=== PATIENT | male | born 1965 | race Caucasian/White ===

== ENCOUNTER 2021-07-07 14:14 | Emergency (ER) | payer MEDICARE, OTHER ==
[~2021-07-07] VITALS: Ht 172.7 cm; Wt 86.2 kg
[~2021-07-07 14:14] MED LIST: ALL DAY ALLERGY10 M3 PO; DEXAMETHASONE6 MG PO; ECOTRIN81 MG PO; GLUCOPHAGE500 MG PO; HUMALOG100 UNIT/3 SC; LANTUS SOL100 UNIT/1 SQ; LIPITOR TAB 1010 MG PO; LISINOPRIL10 MG PO; LOPRESSOR 25 MG25 MG PO; MELOXICAM7.5 MG PO; MONTELUKAST SOD10 MG PO; NEURONTIN 300300 MG PO; NYSTATIN100000 UNI MT; PRAVACHOL40 MG PO; PROTONIX40 MG PO; REGLAN 10 MG TA10 MG PO; TOUJEO MAX300 UNIT/1 SQ
[2021-07-07] MEDS ORDERED: ZOFRAN ODT 4 MG4 MG PO (16:09)
[2021-07-07] MEDS ORDERED: TESSALON PERLE100 MG PO (16:09)
[2021-07-08] MEDS ORDERED: NOVOLOG FL100 UNIT/1 SC (12:50)
[2021-07-08] MEDS ORDERED: HYDROCHLOROTH12.5 M1 PO (14:48)
[2021-07-08] MEDS ORDERED: AMITRIPTYLINE H25 MG PO (14:48)
[2021-07-08] MEDS ORDERED: MOBIC7.5 MG PO (14:49)
[2021-07-08] MEDS ORDERED: DRISDOL1250 MCG PO (14:50)
[2021-07-08] MEDS ORDERED: NYAMYC60 GM TOP (14:50)
[2021-07-08] MEDS ORDERED: IMITREX100 MG PO (14:51)
[2021-07-08] MEDS ORDERED: ZOFRAN ODT 4 MG4 MG PO (15:07)
[2021-07-08] MEDS ORDERED: VITAMIN C 500500 MG PO (15:10)
[2021-07-08] MEDS ORDERED: VITAMIN B-122500 MCG SL (15:11)
[2021-07-08] MEDS ORDERED: MAGNESIUM400 M2 PO (15:11)
[2021-07-08] MEDS ORDERED: TOUJEO MAX300 UNIT/1 SC (23:11)
== END 2021-07-07 18:00 | disposition home or self-care (01) ==
LOC: ER1 14:14
DX: Z53.8 Procedure and treatment not carried out for other reasons (principal)
CPT/HCPCS: 99283; Q9967

== ENCOUNTER 2021-07-07 20:47 | Inpatient (IN) | payer MEDICARE, OTHER ==
[~2021-07-07] VITALS: Ht 175.3 cm; Wt 97.3 kg
[~2021-07-07 20:47] MED LIST changes: +TESSALON PERLE100 MG PO; +ZOFRAN ODT 4 MG4 MG PO
[2021-07-07 22:28] LABS: HEMOGLOBIN 14.9 gm/dl (14.0-17.5); RED BLOOD COUNT 4.65 M/UL (4.20-5.50); WHITE BLOOD COUNT 10.7 K/UL (4.5-11.0)
[2021-07-07 22:57] LABS: BUN/CREATININE RATIO 19 (0-10)
[2021-07-08 02:39] LABS: RED BLOOD COUNT 4.64 M/UL (4.20-5.50); WHITE BLOOD COUNT 11.7 K/UL (4.5-11.0)
[2021-07-08 02:58] LABS: BUN/CREATININE RATIO 19 (0-10)
--- NOTE | 2021-07-08 07:45 | NUR ---
MOOSE IN ECHO DEPARTMENT CONTACTED AND MADE AWARE OF STAT ECHO ORDER. [phone]
[2021-07-08] MEDS ORDERED: NOVOLOG FL100 UNIT/1 SC (12:50)
[2021-07-08] MEDS ORDERED: HYDROCHLOROTH12.5 M1 PO (14:48)
[2021-07-08] MEDS ORDERED: AMITRIPTYLINE H25 MG PO (14:48)
[2021-07-08] MEDS ORDERED: MOBIC7.5 MG PO (14:49)
[2021-07-08] MEDS ORDERED: NYAMYC60 GM TOP (14:50)
[2021-07-08] MEDS ORDERED: DRISDOL1250 MCG PO (14:50)
[2021-07-08] MEDS ORDERED: IMITREX100 MG PO (14:51)
[2021-07-08] MEDS ORDERED: ZOFRAN ODT 4 MG4 MG PO (15:07)
[2021-07-08] MEDS ORDERED: VITAMIN C 500500 MG PO (15:10)
[2021-07-08] MEDS ORDERED: VITAMIN B-122500 MCG SL (15:11)
[2021-07-08] MEDS ORDERED: MAGNESIUM400 M2 PO (15:11)
--- NOTE | 2021-07-08 17:42 | NUR ---
VERSED INFUSION WAS INITIATED BY NIGHTSHIFT NURSE. ON ARRIVAL TO [facility]'S ROOM AT 0700, VERSED INFUSION WAS AT 17 MG/HR.
[2021-07-08] MEDS ORDERED: TOUJEO MAX300 UNIT/1 SC (23:11)
[2021-07-09 04:59] LABS: HEMOGLOBIN 13.4 gm/dl (14.0-17.5); RED BLOOD COUNT 4.25 M/UL (4.20-5.50); WHITE BLOOD COUNT 13.5 K/UL (4.5-11.0)
[2021-07-09 05:32] LABS: BUN/CREATININE RATIO 25 (0-10)
--- NOTE | 2021-07-09 10:35 | NUR ---
SPOKE WITH PT'S SISTER AND MOTHER (RAMON MARIA AN FREDDY CLARISSA) ABOUT NEED FOR CENTRAL LINE PLACEMENT. EXPLAINED PURPOSE AND IMPORTANCE. EXPLAINED NEED AND PURPOSE OF PRONING. VERBALIZED UNDERSTANDING.
--- NOTE | 2021-07-09 13:39 | NUR ---
PT PLACED IN PRONE POSITION PER VERBAL ORDER OF PULMONOLOGY. PT TURNED WITH ASST OF NSG X 6 AND RT X 1. BODY ALIGNED WITH PILLOWS. O2 SAT 93% AT TIME OF PRONING.
[2021-07-09 21:18] LABS: HEMOGLOBIN 12.8 gm/dl (14.0-17.5); RED BLOOD COUNT 4.01 M/UL (4.20-5.50)
[2021-07-09 21:40] LABS: BUN/CREATININE RATIO 32 (0-10)
[2021-07-10 04:27] LABS: BUN/CREATININE RATIO 34 (0-10)
[2021-07-10 13:15] LABS: BUN/CREATININE RATIO 39 (0-10)
--- NOTE | 2021-07-10 18:21 | NUR ---
PT TURNED AND REPOSITIONED Q2-3HRS THIS SHIFT WITH FREQUENT ORAL CARE PERFORMED. ETT TUBE GROSS CHANGED PER NSG AND RT.
[2021-07-11 05:07] LABS: RED BLOOD COUNT 4.15 M/UL (4.20-5.50); WHITE BLOOD COUNT 9.7 K/UL (4.5-11.0)
[2021-07-11 05:57] LABS: BUN/CREATININE RATIO 46 (0-10)
[2021-07-12 06:04] LABS: HEMOGLOBIN 12.8 gm/dl (14.0-17.5); RED BLOOD COUNT 4.1 M/UL (4.20-5.50); WHITE BLOOD COUNT 8.5 K/UL (4.5-11.0)
[2021-07-12 06:29] LABS: BUN/CREATININE RATIO 56 (0-10)
[2021-07-13 04:11] LABS: HEMOGLOBIN 12.6 gm/dl (14.0-17.5); WHITE BLOOD COUNT 9.5 K/UL (4.5-11.0)
[2021-07-13 04:37] LABS: BUN/CREATININE RATIO 57 (0-10)
[2021-07-14 05:00] LABS: HEMOGLOBIN 11.9 gm/dl (14.0-17.5); RED BLOOD COUNT 3.82 M/UL (4.20-5.50); WHITE BLOOD COUNT 10.3 K/UL (4.5-11.0)
[2021-07-14 05:35] LABS: BUN/CREATININE RATIO 57 (0-10)
[2021-07-15 05:28] LABS: HEMOGLOBIN 12.6 gm/dl (14.0-17.5); RED BLOOD COUNT 4.07 M/UL (4.20-5.50); WHITE BLOOD COUNT 9.3 K/UL (4.5-11.0)
[2021-07-15 05:49] LABS: BUN/CREATININE RATIO 54 (0-10)
[2021-07-16 04:18] LABS: RED BLOOD COUNT 4.33 M/UL (4.20-5.50)
[2021-07-16 05:01] LABS: BUN/CREATININE RATIO 52 (0-10)
--- NOTE | 2021-07-17 00:57 | NUR ---
PT SAT 82% ON AIRVO @ 100%. MD CALLED PT PLACED ON BIPAP AO. PT BLOOG GLUCOE LEVEL 44 1 AMP OG D50 GIVEN AO. PT NTS TO HAVE A VOMITING EPISODE IN WHICH ZOFRAN IVP WAS GIVEN AO. PT IS CURRENTLY RECIEVING 100 FI02 WITH A SAT OF 95%. WILL CONTINTUE TO SPEAK WITH MD ABOUT ANY CHANGES IN PT RESPIRATORY STATUS.
[2021-07-17 05:38] LABS: HEMOGLOBIN 15.9 gm/dl (14.0-17.5); WHITE BLOOD COUNT 10.6 K/UL (4.5-11.0)
[2021-07-17 05:43] LABS: RED BLOOD COUNT 4.95 M/UL (4.20-5.50)
[2021-07-17 06:00] LABS: BUN/CREATININE RATIO 40 (0-10)
[2021-07-18 04:53] LABS: HEMOGLOBIN 13.7 gm/dl (14.0-17.5); RED BLOOD COUNT 4.33 M/UL (4.20-5.50); WHITE BLOOD COUNT 9.8 K/UL (4.5-11.0)
[2021-07-18 05:40] LABS: BUN/CREATININE RATIO 55 (0-10)
[2021-07-19 05:14] LABS: HEMOGLOBIN 13.5 gm/dl (14.0-17.5); RED BLOOD COUNT 4.22 M/UL (4.20-5.50); WHITE BLOOD COUNT 8.8 K/UL (4.5-11.0)
[2021-07-19 05:48] LABS: BUN/CREATININE RATIO 52 (0-10)
--- NOTE | 2021-07-19 18:31 | NUR ---
PT RECIVED TO PCU @ 1752 PT STABLE AT THIS TIME ON AIRVO 60L AND 65%. CHART AND MEDS BROUGHT WITH PT
[2021-07-20 04:43] LABS: HEMOGLOBIN 14.1 gm/dl (14.0-17.5); RED BLOOD COUNT 4.46 M/UL (4.20-5.50); WHITE BLOOD COUNT 7.9 K/UL (4.5-11.0)
[2021-07-20 04:57] LABS: BUN/CREATININE RATIO 40 (0-10)
[2021-07-21 06:32] LABS: BUN/CREATININE RATIO 45 (0-10)
[2021-07-22 04:19] LABS: BUN/CREATININE RATIO 45 (0-10)
[2021-07-23 03:20] LABS: BUN/CREATININE RATIO 45 (0-10)
[2021-07-24 03:45] LABS: HEMOGLOBIN 13.1 gm/dl (14.0-17.5); RED BLOOD COUNT 4.15 M/UL (4.20-5.50); WHITE BLOOD COUNT 5.8 K/UL (4.5-11.0)
[2021-07-24 04:06] LABS: BUN/CREATININE RATIO 38 (0-10)
[2021-07-25 03:41] LABS: BUN/CREATININE RATIO 31 (0-10)
[2021-07-27 04:11] LABS: RED BLOOD COUNT 4.38 M/UL (4.20-5.50); WHITE BLOOD COUNT 8.8 K/UL (4.5-11.0)
[2021-07-27 04:32] LABS: BUN/CREATININE RATIO 25 (0-10)
[2021-07-29 03:57] LABS: HEMOGLOBIN 14.7 gm/dl (14.0-17.5); RED BLOOD COUNT 4.58 M/UL (4.20-5.50); WHITE BLOOD COUNT 8.7 K/UL (4.5-11.0)
[2021-07-29 04:27] LABS: BUN/CREATININE RATIO 25 (0-10)
[2021-07-30 03:22] LABS: BUN/CREATININE RATIO 22 (0-10)
[2021-07-31 03:59] LABS: HEMOGLOBIN 13.1 gm/dl (14.0-17.5); RED BLOOD COUNT 4.24 M/UL (4.20-5.50); WHITE BLOOD COUNT 8.2 K/UL (4.5-11.0)
[2021-07-31 04:15] LABS: BUN/CREATININE RATIO 24 (0-10)
--- NOTE | 2021-08-01 12:22 | NUR ---
REPORT GIVEN TO SUZIE ON 4TH FLOOR. PATIENT TO BE TRANSFERRED
[2021-08-03 07:17] LABS: HEMOGLOBIN 14.2 gm/dl (14.0-17.5); RED BLOOD COUNT 4.73 M/UL (4.20-5.50); WHITE BLOOD COUNT 8.8 K/UL (4.5-11.0)
[2021-08-03 07:51] LABS: BUN/CREATININE RATIO 16 (0-10)
[2021-08-06 08:02] LABS: RED BLOOD COUNT 4.81 M/UL (4.20-5.50); WHITE BLOOD COUNT 11.3 K/UL (4.5-11.0)
[2021-08-06 08:19] LABS: BUN/CREATININE RATIO 19 (0-10)
[2021-08-08 09:06] LABS: HEMOGLOBIN 14.2 gm/dl (14.0-17.5); RED BLOOD COUNT 4.61 M/UL (4.20-5.50)
[2021-08-08 09:08] LABS: WHITE BLOOD COUNT 15.7 K/UL (4.5-11.0)
[2021-08-08 09:32] LABS: BUN/CREATININE RATIO 15 (0-10)
[2021-08-10 04:41] LABS: HEMOGLOBIN 13.7 gm/dl (14.0-17.5); RED BLOOD COUNT 4.48 M/UL (4.20-5.50); WHITE BLOOD COUNT 13.4 K/UL (4.5-11.0)
[2021-08-10 04:44] LABS: BUN/CREATININE RATIO 12 (0-10)
[2021-08-11 09:14] LABS: HEMOGLOBIN 14.3 gm/dl (14.0-17.5); RED BLOOD COUNT 4.56 M/UL (4.20-5.50); WHITE BLOOD COUNT 14.8 K/UL (4.5-11.0)
[2021-08-12 08:59] LABS: HEMOGLOBIN 12.7 gm/dl (14.0-17.5); WHITE BLOOD COUNT 11.5 K/UL (4.5-11.0)
[2021-08-13 02:45] LABS: HEMOGLOBIN 11.9 gm/dl (14.0-17.5); RED BLOOD COUNT 3.78 M/UL (4.20-5.50); WHITE BLOOD COUNT 12.6 K/UL (4.5-11.0)
[2021-08-13 03:52] LABS: BUN/CREATININE RATIO 12 (0-10)
[2021-08-14 04:22] LABS: HEMOGLOBIN 12.4 gm/dl (14.0-17.5); RED BLOOD COUNT 3.92 M/UL (4.20-5.50); WHITE BLOOD COUNT 12.6 K/UL (4.5-11.0)
[2021-08-14 04:50] LABS: BUN/CREATININE RATIO 8 (0-10)
[2021-08-15 05:21] LABS: HEMOGLOBIN 11.9 gm/dl (14.0-17.5); RED BLOOD COUNT 3.77 M/UL (4.20-5.50); WHITE BLOOD COUNT 14.4 K/UL (4.5-11.0)
[2021-08-15 05:32] LABS: BUN/CREATININE RATIO 10 (0-10)
[2021-08-16 05:57] LABS: HEMOGLOBIN 11.8 gm/dl (14.0-17.5); RED BLOOD COUNT 3.65 M/UL (4.20-5.50); WHITE BLOOD COUNT 14.7 K/UL (4.5-11.0)
[2021-08-16 06:19] LABS: BUN/CREATININE RATIO 11 (0-10)
[2021-08-17 07:29] LABS: HEMOGLOBIN 12.2 gm/dl (14.0-17.5); RED BLOOD COUNT 3.93 M/UL (4.20-5.50)
[2021-08-17 07:31] LABS: WHITE BLOOD COUNT 19.3 K/UL (4.5-11.0)
[2021-08-17 07:55] LABS: BUN/CREATININE RATIO 9 (0-10)
[2021-08-18 10:54] LABS: HEMOGLOBIN 13.3 gm/dl (14.0-17.5); RED BLOOD COUNT 4.06 M/UL (4.20-5.50)
[2021-08-18 10:55] LABS: WHITE BLOOD COUNT 26.4 K/UL (4.5-11.0)
[2021-08-18 11:13] LABS: BUN/CREATININE RATIO 11 (0-10)
--- NOTE | 2021-08-18 18:50 | NUR ---
DR. HINSON AT BEDSIDE TO PUT INCENTRAL LINE. TITRATING LEVOPHED DRIP FOR BLOOD PRESSURE (SEE FLOW SHEET ). CENTRAL LINE VERIFIED BY X-RAY. OK TO USE PER DR. HINSON. 1942 NS BOLUS STARTED ORDERED.
[2021-08-19 05:37] LABS: HEMOGLOBIN 12.3 gm/dl (14.0-17.5); RED BLOOD COUNT 3.96 M/UL (4.20-5.50)
--- NOTE | 2021-08-19 20:04 | NUR ---
BLOOD GLUCOSE RESULT 184 . NOTIFIED. ORDER RECEIVED TO CONTINUE INSULIN DRIP AND TITRATE TO BLOOD GLUCOSE IN 120 - 200 RANGE .
[2021-08-20 05:36] LABS: HEMOGLOBIN 10.7 gm/dl (14.0-17.5)
[2021-08-20 05:37] LABS: RED BLOOD COUNT 3.51 M/UL (4.20-5.50); WHITE BLOOD COUNT 25.3 K/UL (4.5-11.0)
[2021-08-21 05:53] LABS: RED BLOOD COUNT 3.13 M/UL (4.20-5.50); WHITE BLOOD COUNT 13.8 K/UL (4.5-11.0)
[2021-08-21 09:09] LABS: HEMOGLOBIN 9.4 gm/dl (14.0-17.5); RED BLOOD COUNT 2.97 M/UL (4.20-5.50); WHITE BLOOD COUNT 12.4 K/UL (4.5-11.0)
[2021-08-22 01:01] LABS: ADENOVIRUS F 40/41 Not Detected (Negative); ASTROVIRUS Not Detected (Negative); CAMPYLOBACTER Not Detected (Negative); CLOSTRIDIUM DIFFICILE TOX A/B Not Detected (Negative); CRYPTOSPORIDIUM Not Detected (Negative); E.COLI 0157 Not Detected (Negative); ENTAMOEBA HISTOLYTICA Not Detected (Negative); ENTEROAGGREGATIVE E.COLI (EAEC Not Detected (Negative); ENTEROPATHOGENIC E.COLI (EPEC) Not Detected (Negative); ENTEROTOXIGENIC E.COLI (ETEC) Not Detected (Negative); GIARDIA LAMBLIA Not Detected (Negative); NOROVIRUS GI/GII Not Detected (Negative); PLESIOMONAS SHIGELLOIDES Not Detected (Negative); ROTOVIRUS A Not Detected (Negative); SALMONELLA Not Detected (Negative); SAPOVIRUS Not Detected (Negative); SHIG/ENTEROINVAS.ECOLI (EIEC) Not Detected (Negative); SHIGA-LIK TOX.PRO.E.COLI (STEC Not Detected (Negative); VIBRIO Not Detected (Negative); VIBRIO CHOLERAE Not Detected (Negative); YERSINIA ENTEROCOLITICA Not Detected (Negative)
[2021-08-22 05:25] LABS: HEMOGLOBIN 9.1 gm/dl (14.0-17.5); RED BLOOD COUNT 2.9 M/UL (4.20-5.50); WHITE BLOOD COUNT 10.8 K/UL (4.5-11.0)
--- NOTE | 2021-08-22 17:16 | NUR ---
08/22/21 1715 TUBE FEEDING OFF ALL DAY [address] CARRERO AWARE
[2021-08-23 05:14] LABS: HEMOGLOBIN 9.1 gm/dl (14.0-17.5); RED BLOOD COUNT 2.96 M/UL (4.20-5.50)
[2021-08-23 05:15] LABS: WHITE BLOOD COUNT 15.9 K/UL (4.5-11.0)
--- NOTE | 2021-08-23 12:10 | NUR ---
08/23/21 1210 RECEIVED CALL FROM RADIOLOGY ABOUT ETT NEEDING TO BE ADVANCED, DR GARF ALREADY HAD RESP THERAPIST TO ADVANCE
[2021-08-24 04:59] LABS: HEMOGLOBIN 8.5 gm/dl (14.0-17.5); RED BLOOD COUNT 2.69 M/UL (4.20-5.50)
[2021-08-24 05:22] LABS: WHITE BLOOD COUNT 20.7 K/UL (4.5-11.0)
[2021-08-24 10:13] LABS: HBSAG SCREEN Negative (Negative); HEP A AB, IGM Negative (Negative); HEP B CORE AB, IGM Negative (Negative); HEP C VIRUS AB <0.1 (0.0-0.9)
[2021-08-24 16:13] LABS: HEPARIN INDUCED PLATELET AB 0.156 OD (0.000-0.400)
--- NOTE | 2021-08-24 23:16 | NUR ---
02 SATS 88% ON FI02 100% . REPOSITIIONED IN BED , HOB RAISED TO > 30 DEGREES ,02 SATS INCREASED TO 93-94% ,WILL CONTINUE TO MONITOR,
[2021-08-25 05:41] LABS: HEMOGLOBIN 7.8 gm/dl (14.0-17.5); WHITE BLOOD COUNT 25.7 K/UL (4.5-11.0)
[2021-08-26 05:48] LABS: HEMOGLOBIN 7.3 gm/dl (14.0-17.5); RED BLOOD COUNT 2.35 M/UL (4.20-5.50); WHITE BLOOD COUNT 22.2 K/UL (4.5-11.0)
[2021-08-27 06:06] LABS: HEMOGLOBIN 7.4 gm/dl (14.0-17.5); RED BLOOD COUNT 2.3 M/UL (4.20-5.50)
[2021-08-28 06:25] LABS: HEMOGLOBIN 7.4 gm/dl (14.0-17.5); RED BLOOD COUNT 2.34 M/UL (4.20-5.50); WHITE BLOOD COUNT 23.9 K/UL (4.5-11.0)
[2021-08-29 05:26] LABS: HEMOGLOBIN 8.3 gm/dl (14.0-17.5)
[2021-08-29 05:55] LABS: RED BLOOD COUNT 2.67 M/UL (4.20-5.50); WHITE BLOOD COUNT 42.9 K/UL (4.5-11.0)
[2021-08-30 06:04] LABS: HEMOGLOBIN 9.4 gm/dl (14.0-17.5); RED BLOOD COUNT 2.88 M/UL (4.20-5.50)
[2021-08-30 08:28] LABS: WHITE BLOOD COUNT 46.5 K/UL (4.5-11.0)
[2021-08-30 22:21] LABS: ACINETOBACTER BAUMANNII Not Detected (Negative); CANDIDA ALBICANS Not Detected (Negative); CANDIDA KRUSEI Not Detected (Negative); CANDIDA TROPICALIS Not Detected (Negative); ENTEROCOCCUS Not Detected (Negative); ESCHERICHIA COLI Not Detected (Negative); HAEMOPHILUS INFLUENZAE Not Detected (Negative); KLEBSIELLA OXYTOCA Not Detected (Negative); KLEBSIELLA PNEUMONIAE Not Detected (Negative); KPC-CARBAPENEM-RESISTANCE GENE Not Detected (Negative); PROTEUS Not Detected (Negative); PSEUDOMONAS AERUGINOSA Not Detected (Negative); SERRATIA MARCESANS Not Detected (Negative); STAPHYLOCOCCUS AUREUS Not Detected (Negative); STREP AGALACTIAE (GROUP B) Not Detected (Negative); STREP PYOGENES (GROUP A) Not Detected (Negative); STREPTOCOCCUS Not Detected (Negative); vanA/B (VANCOMYCIN RESIST GENE Not Detected (Negative)
[2021-08-30 23:53] LABS: STAPHYLOCOCCUS DETECTED (Negative); mecA (METHICILLIN RESIST GENE DETECTED (Negative)
[2021-08-31 05:04] LABS: HEMOGLOBIN 7.6 gm/dl (14.0-17.5)
[2021-08-31 05:19] LABS: RED BLOOD COUNT 2.34 M/UL (4.20-5.50); WHITE BLOOD COUNT 33.3 K/UL (4.5-11.0)
[2021-09-01 06:44] LABS: ADENOVIRUS F 40/41 Not Detected (Negative); ASTROVIRUS Not Detected (Negative); CAMPYLOBACTER Not Detected (Negative); CLOSTRIDIUM DIFFICILE TOX A/B Not Detected (Negative); CRYPTOSPORIDIUM Not Detected (Negative); E.COLI 0157 Not Detected (Negative); ENTAMOEBA HISTOLYTICA Not Detected (Negative); ENTEROAGGREGATIVE E.COLI (EAEC Not Detected (Negative); ENTEROPATHOGENIC E.COLI (EPEC) Not Detected (Negative); ENTEROTOXIGENIC E.COLI (ETEC) Not Detected (Negative); GIARDIA LAMBLIA Not Detected (Negative); NOROVIRUS GI/GII Not Detected (Negative); PLESIOMONAS SHIGELLOIDES Not Detected (Negative); ROTOVIRUS A Not Detected (Negative); SALMONELLA Not Detected (Negative); SAPOVIRUS Not Detected (Negative); SHIG/ENTEROINVAS.ECOLI (EIEC) Not Detected (Negative); SHIGA-LIK TOX.PRO.E.COLI (STEC Not Detected (Negative); VIBRIO Not Detected (Negative); VIBRIO CHOLERAE Not Detected (Negative); YERSINIA ENTEROCOLITICA Not Detected (Negative)
[2021-09-01 06:50] LABS: HEMOGLOBIN 7.1 gm/dl (14.0-17.5); RED BLOOD COUNT 2.2 M/UL (4.20-5.50); WHITE BLOOD COUNT 28.5 K/UL (4.5-11.0)
[2021-09-02 06:36] LABS: HEMOGLOBIN 7.7 gm/dl (14.0-17.5); RED BLOOD COUNT 2.42 M/UL (4.20-5.50); WHITE BLOOD COUNT 26.9 K/UL (4.5-11.0)
[2021-09-03 04:25] LABS: HEMOGLOBIN 7.9 gm/dl (14.0-17.5); RED BLOOD COUNT 2.64 M/UL (4.20-5.50)
[2021-09-04 05:24] LABS: HEMOGLOBIN 7.7 gm/dl (14.0-17.5); RED BLOOD COUNT 2.51 M/UL (4.20-5.50); WHITE BLOOD COUNT 24.8 K/UL (4.5-11.0)
--- NOTE | 2021-09-04 18:13 | NUR ---
09/04/21 0830 SPOKE TO [employer] ABOUT PATIENT. GCS 3, NO CORNEAL/GAG/COUGH REFLEXES NOTED. [employer] STATED THAT PATIENT IS RULED OUT FOR ORGAN DONATION.
[2021-09-05 05:47] LABS: HEMOGLOBIN 7.2 gm/dl (14.0-17.5); RED BLOOD COUNT 2.32 M/UL (4.20-5.50)
[2021-09-06 04:50] LABS: RED BLOOD COUNT 2.15 M/UL (4.20-5.50); WHITE BLOOD COUNT 17.7 K/UL (4.5-11.0)
[2021-09-06 05:00] LABS: HEMOGLOBIN 6.6 gm/dl (14.0-17.5)
[2021-09-07 05:26] LABS: HEMOGLOBIN 7.4 gm/dl (14.0-17.5); WHITE BLOOD COUNT 14.3 K/UL (4.5-11.0)
[2021-09-07 05:44] LABS: RED BLOOD COUNT 2.48 M/UL (4.20-5.50)
[2021-09-09 05:30] LABS: RED BLOOD COUNT 1.65 M/UL (4.20-5.50)
[2021-09-10 05:28] LABS: HEMOGLOBIN 7.6 gm/dl (14.0-17.5); RED BLOOD COUNT 2.51 M/UL (4.20-5.50); WHITE BLOOD COUNT 7.5 K/UL (4.5-11.0)
--- NOTE | 2021-09-10 10:29 | NUR ---
LATE NOTE: APPORXIMATELY 0730 PT FOUND TO BE HYPOTHERMIC DURING ASSESSMENT. WARM BLANKETS APPLIED AND WARMING BLAKET PLACED ON PATIENT. CONTINUING TO MONITOR TEMPERATURE.
--- NOTE | 2021-09-10 10:30 | NUR ---
LATE NOTE: 0802 PATIENTS BLOOD GLUCOSE 39, ON RE-CHECK GLUCOSE WAS 34. MD NOTIFIED D50 PUSH GIVEN IV PER PROTOCOL. D5W STARTED AT 5OML/HR PER MD ORDER. LANTUS HELD PER MD.
--- NOTE | 2021-09-10 10:35 | NUR ---
1000: OR TEAM AT BEDSIDE FOR TRACH AND PEG. VSS AT THIS TIME.
[2021-09-11 07:53] LABS: HEMOGLOBIN 7.7 gm/dl (14.0-17.5); RED BLOOD COUNT 2.51 M/UL (4.20-5.50)
[2021-09-11 07:55] LABS: WHITE BLOOD COUNT 5.5 K/UL (4.5-11.0)
[2021-09-12 05:08] LABS: HEMOGLOBIN 8.4 gm/dl (14.0-17.5); RED BLOOD COUNT 2.64 M/UL (4.20-5.50)
[2021-09-12 05:12] LABS: WHITE BLOOD COUNT 3.2 K/UL (4.5-11.0)
[2021-09-12 16:53] LABS: HEMOGLOBIN 8.2 gm/dl (14.0-17.5); RED BLOOD COUNT 2.61 M/UL (4.20-5.50); WHITE BLOOD COUNT 2.5 K/UL (4.5-11.0)
[2021-09-13 08:54] LABS: HEMOGLOBIN 7.5 gm/dl (14.0-17.5); RED BLOOD COUNT 2.46 M/UL (4.20-5.50); WHITE BLOOD COUNT 4.8 K/UL (4.5-11.0)
[2021-09-14 07:22] LABS: HEMOGLOBIN 7.8 gm/dl (14.0-17.5); RED BLOOD COUNT 2.63 M/UL (4.20-5.50)
[2021-09-14 07:26] LABS: WHITE BLOOD COUNT 6.2 K/UL (4.5-11.0)
[2021-09-15 05:56] LABS: HEMOGLOBIN 8.6 gm/dl (14.0-17.5); RED BLOOD COUNT 2.85 M/UL (4.20-5.50)
[2021-09-17 05:04] LABS: HEMOGLOBIN 7.9 gm/dl (14.0-17.5); RED BLOOD COUNT 2.58 M/UL (4.20-5.50); WHITE BLOOD COUNT 4.9 K/UL (4.5-11.0)
--- NOTE | 2021-09-17 08:38 | NUR ---
APPROXIMATELY 0800. PT TAKEN TO OR VIA STRETCHER FOR PERMANENT HD CATH PLACEMENT. FAMILY NOTIFIED. CONSENT VERIFIED.
--- NOTE | 2021-09-17 09:47 | NUR ---
PT RETURNED FROM OR. VSS.
[2021-09-18 04:30] LABS: HEMOGLOBIN 7.8 gm/dl (14.0-17.5); RED BLOOD COUNT 2.64 M/UL (4.20-5.50)
[2021-09-18 04:35] LABS: WHITE BLOOD COUNT 7.2 K/UL (4.5-11.0)
[2021-09-19 05:13] LABS: HEMOGLOBIN 8.6 gm/dl (14.0-17.5); RED BLOOD COUNT 2.77 M/UL (4.20-5.50)
[2021-09-19 05:15] LABS: WHITE BLOOD COUNT 10.1 K/UL (4.5-11.0)
[2021-09-20 04:11] LABS: HEMOGLOBIN 8.3 gm/dl (14.0-17.5); RED BLOOD COUNT 2.76 M/UL (4.20-5.50)
[2021-09-20 04:20] LABS: WHITE BLOOD COUNT 13.4 K/UL (4.5-11.0)
[2021-09-21] MEDS ORDERED: MODAFINIL100 MG PO (16:40)
[2021-09-21] MEDS ORDERED: LOPRESSOR 25 MG25 MG PEG (16:40)
[2021-09-21] MEDS ORDERED: HYDROCODON-ACE1 EAC4 PEG (16:40)
[2021-09-23 12:14] LABS: HBSAG SCREEN Negative (Negative); HEP A AB, IGM Negative (Negative); HEP B CORE AB, IGM Negative (Negative); HEP C VIRUS AB <0.1 (0.0-0.9)
== END 2021-09-22 12:20 | DRG 4 ==
LOC: ER1 20:47 → PROG CARE 07-08 01:29 → MED SURG 4 07-08 01:29 → CDU 07-08 01:29 → CCU 07-08 01:29 → PROG CARE 07-19 17:37 → MED SURG 4 08-01 12:30 → CCU 08-18 13:53
PROVIDERS: Internal Medicine; Internal Medicine Infectious Disease; Internal Medicine Nephrology; Internal Medicine Pulmonary Disease; Physician Assistant; Surgery; ADMIT Internal Medicine
PROC: XW033E5 Introduction of Remdesivir Anti-infective into Peripheral Vein, Percutaneous Approach, New Technology Group 5 (ICD-10-PCS; 2021-07-08)
PROC: 3E0333Z Introduction of Anti-inflammatory into Peripheral Vein, Percutaneous Approach (ICD-10-PCS; 2021-07-08)
PROC: 3E033XZ Introduction of Vasopressor into Peripheral Vein, Percutaneous Approach (ICD-10-PCS; 2021-07-08)
PROC: 0BH18EZ Insertion of Endotracheal Airway into Trachea, Via Natural or Artificial Opening Endoscopic (ICD-10-PCS; 2021-07-08)
PROC: B24BZZZ Ultrasonography of Heart with Aorta (ICD-10-PCS; 2021-07-08)
PROC: 8E0ZXY6 Isolation (ICD-10-PCS; 2021-07-08)
PROC: 05HM33Z Insertion of Infusion Device into Right Internal Jugular Vein, Percutaneous Approach (ICD-10-PCS; 2021-07-09)
PROC: B543ZZA Ultrasonography of Right Jugular Veins, Guidance (ICD-10-PCS; 2021-07-09)
PROC: 0DH67UZ Insertion of Feeding Device into Stomach, Via Natural or Artificial Opening (ICD-10-PCS; 2021-07-10)
PROC: 3E0G76Z Introduction of Nutritional Substance into Upper GI, Via Natural or Artificial Opening (ICD-10-PCS; 2021-07-10)
PROC: XW033G5 Introduction of Sarilumab into Peripheral Vein, Percutaneous Approach, New Technology Group 5 (ICD-10-PCS; 2021-07-11)
PROC: 30233N1 Transfusion of Nonautologous Red Blood Cells into Peripheral Vein, Percutaneous Approach (ICD-10-PCS; 2021-09-06)
PROC: 4A10X4Z Monitoring of Central Nervous Electrical Activity, External Approach (ICD-10-PCS; 2021-09-06)
PROC: 5A1D70Z Performance of Urinary Filtration, Intermittent, Less than 6 Hours Per Day (ICD-10-PCS; 2021-09-09)
PROC: 0DH68UZ Insertion of Feeding Device into Stomach, Via Natural or Artificial Opening Endoscopic (ICD-10-PCS; 2021-09-10)
PROC: 0BJ08ZZ Inspection of Tracheobronchial Tree, Via Natural or Artificial Opening Endoscopic (ICD-10-PCS; 2021-09-10)
PROC: 0B113F4 Bypass Trachea to Cutaneous with Tracheostomy Device, Percutaneous Approach (ICD-10-PCS; principal; 2021-09-10 10:00)
PROC: 5A1955Z Respiratory Ventilation, Greater than 96 Consecutive Hours (ICD-10-PCS; 2021-09-10 10:00)
PROC: 5A1D70Z Performance of Urinary Filtration, Intermittent, Less than 6 Hours Per Day (ICD-10-PCS; 2021-09-15)
PROC: 02HV33Z Insertion of Infusion Device into Superior Vena Cava, Percutaneous Approach (ICD-10-PCS; 2021-09-17)
PROC: B5181ZA Fluoroscopy of Superior Vena Cava using Low Osmolar Contrast, Guidance (ICD-10-PCS; 2021-09-17)
PROC: 5A1D70Z Performance of Urinary Filtration, Intermittent, Less than 6 Hours Per Day (ICD-10-PCS; 2021-09-17)
PROC: 5A1D70Z Performance of Urinary Filtration, Intermittent, Less than 6 Hours Per Day (ICD-10-PCS; 2021-09-18)
DX: A41.89 Other specified sepsis (principal); U07.1 COVID-19; J12.82 Pneumonia due to coronavirus disease 2019; R65.21 Severe sepsis with septic shock; J15.9 Unspecified bacterial pneumonia; J80 Acute respiratory distress syndrome; N18.6 End stage renal disease; J15.212 Pneumonia due to Methicillin resistant Staphylococcus aureus; G92.8 Other toxic encephalopathy; N17.0 Acute kidney failure with tubular necrosis; E87.1 Hypo-osmolality and hyponatremia; K92.2 Gastrointestinal hemorrhage, unspecified; I12.0 Hypertensive chronic kidney disease with stage 5 chronic kidney disease or end stage renal disease; E87.2 Acidosis; E87.3 Alkalosis; E87.0 Hyperosmolality and hypernatremia; R04.2 Hemoptysis; J95.812 Postprocedural air leak; Z23 Encounter for immunization; Z66 Do not resuscitate; E10.649 Type 1 diabetes mellitus with hypoglycemia without coma; E86.0 Dehydration; L89.316 Pressure-induced deep tissue damage of right buttock; E10.42 Type 1 diabetes mellitus with diabetic polyneuropathy; E87.6 Hypokalemia; J45.20 Mild intermittent asthma, uncomplicated; K21.9 Gastro-esophageal reflux disease without esophagitis; G72.9 Myopathy, unspecified; D63.1 Anemia in chronic kidney disease; D69.6 Thrombocytopenia, unspecified; D72.829 Elevated white blood cell count, unspecified; T38.0X5A Adverse effect of glucocorticoids and synthetic analogues, initial encounter; E10.65 Type 1 diabetes mellitus with hyperglycemia; R13.10 Dysphagia, unspecified; E87.5 Hyperkalemia; E88.09 Other disorders of plasma-protein metabolism, not elsewhere classified; E10.43 Type 1 diabetes mellitus with diabetic autonomic (poly)neuropathy; K31.84 Gastroparesis; R19.7 Diarrhea, unspecified; R47.02 Dysphasia; J84.10 Pulmonary fibrosis, unspecified; I07.1 Rheumatic tricuspid insufficiency; Y83.9 Surgical procedure, unspecified as the cause of abnormal reaction of the patient, or of later complication, without mention of misadventure at the time of the procedure; Y92.238 Other place in hospital as the place of occurrence of the external cause; Z79.4 Long term (current) use of insulin; Z82.49 Family history of ischemic heart disease and other diseases of the circulatory system; Z83.3 Family history of diabetes mellitus; Z99.2 Dependence on renal dialysis
CPT/HCPCS: ECHO; 31500; 36415; 36600; 70450; 71045; 71250; 74018; 74230; 76705; 77001; 80048; 80053; 80074; 80076; 80202; 82009; 82140; 82533; 82550; 82553; 82728; 82803; 82962; 83036; 83605; 83615; 83735; 83874; 83880; 84100; 84132; 84484; 85007; 85018; 85025; 85027; 85379; 85384; 85610; 85730; 86140; 86850; 86900; 86901; 86920; 86927; 87040; 87070; 87077; 87081; 87086; 87150; 87186; 87205; 87449; 87507; 90935; 90937; 92526; 92610; 92611-GN; 93005; 93306; 94002; 94003; 94640; 94660; 94664; 94760; 95819; 96374; 96375; 97110; 97110-GP-CQ; 97116-GP-CQ; 97163; 97167; 97530; 97530-GP-CQ; 97535; 99283; 99285; A6212; C1750; C1751; C1752; C1769; C9113; J0330; J0692; J1100; J1205; J1610; J1642; J1644; J1650; J1720; J1885; J1940; J2020; J2060; J2185; J2248; J2250; J2370; J2405; J2543; J2550; J2704; J2765; J2920; J3010; J3370; J3480; J7030; J7040; J7042; J7050; J7060; J7070; J7120; P9016; P9047; Q9967